=== PATIENT | male | born 1995 | race American Indian/Alaskan Native ===

== ENCOUNTER 2021-09-05 03:08 | Emergency (ER) | payer OTHER ==
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
[2021-09-05] MEDS ORDERED: fentaNYL 100 MCG/2 ML INJ IV ONE (06:43)
[2021-09-05] MEDS ORDERED: ONDANSETRON 4 MG/2 ML INJ IV ONE (06:43)
[2021-09-05] MEDS ORDERED: TETANUS,DIPH,PERTUSS(ACELL) VACCINE 0.5 ML SYRINGE IM ONE (06:43)
[2021-09-05] MEDS ORDERED: HYDROmorphone 1 MG/1 ML INJ IV ONE (08:30)
[2021-09-05 09:01] VITALS: BP 148/78
== END 2021-09-05 17:24 | disposition hospice, inpatient (51) ==
LOC: ED 03:08
DX: S02.32XA Fracture of orbital floor, left side, initial encounter for closed fracture (principal); H50.69 Other mechanical strabismus; M25.562 Pain in left knee; M25.561 Pain in right knee; M79.652 Pain in left thigh; Y04.8XXA Assault by other bodily force, initial encounter; Y93.89 Activity, other specified; Y92.89 Other specified places as the place of occurrence of the external cause; Y99.8 Other external cause status
CPT/HCPCS: 70450; 70486; 90471; 90715; 96374; 96375; 99285; J2405; J3010